=== PATIENT | male | born 1975 | race Caucasian/White ===

== ENCOUNTER 2023-06-03 10:40 | Day surgery (SDC) | payer OTHER, SELFPAY ==
[2023-06-03 11:19] VITALS: BMI 28.6
[2023-06-03 11:28] VITALS: BP 116/85; PULSE 55; RESP 18; TEMP 36.9; O2SAT 100
[2023-06-03] MEDS: Lactated Ringers 1,000 ML 50 ML IVCONT (11:59)
[2023-06-03] MEDS: Sodium Phosphate,Mono-Dibasic 133 ML ENEMA PR ×2 (12:01→12:12)
--- NOTE | 2023-06-03 12:31 | HO.ANESPROP2 ---
HPI - Anesthesia Eval Consult details Narrative: 47 M for colonoscopy [facility] Past Medical History Medical History (Updated 05/30/23 @ 13:52 by Lore Hernandes, RN) Muscle spasm Allergy Functional capacity: independent ambulation Family History Family history of problems with anesthesia: No Surgical History Surgical History (Updated 05/30/23 @ 13:51 by Lore Hernandes RN) Hx of appendectomy Hx of colonoscopy History of Problems with Anesthesia: No Social History Social History Patient Tobacco Use Status: Never used Tobacco Are you DNR?: No Advance Directives: No Advance Directives Information Provided: Yes Meds Allergies Allergy/AdvReac Type Severity Reaction Status Date / Time No Known Allergies Allergy Verified 05/30/23 13:51 Active Medications: Current Medications Lactated Ringer's (Lr) 1,000 mls @ 50 mls/hr IVCONT .Q20H ADALBERTO Last Admin: 06/03/23 11:59 Dose: 50 mls/hr Sodium Biphosphate/Sodium Phosphate (Sodium Phosphate,Glynn-Dibasic 133 Ml Enema) 133 ml TX ONCE PRN PRN Reason: Poor Colonoscopy Prep Results Last Admin: 06/03/23 12:12 Dose: 133 ml Home Medications Medication Instructions Recorded Confirmed Last Taken Type cyclobenzaprine 15 mg 15 mg PO BEDTIME PRN Muscle Spasm 05/30/23 05/30/23 Unknown History capsule,extended release 24 hr fexofenadine 60 mg tablet (Sneha 60 mg PO BID 05/30/23 05/30/23 Unknown History Allergy) fluticasone propionate 50 1 spray intranasal BID 05/30/23 05/30/23 Unknown History mcg/actuation nasal spray,suspension Exam Exam Date and Time: June 03, 2023 1231 Height,Weight and Vital Signs: Height 6 ft 3.5 in Weight 105.233 kg Last Vital Signs Temp 98.5 F 06/03/23 11:28 Pulse 55 06/03/23 11:28 Resp 18 06/03/23 11:28 BP 116/85 06/03/23 11:28 Pulse Ox 100 06/03/23 11:28 O2 Del Method Room Air 06/03/23 11:28 Airway Mallampati Class: IV Loose/Missing/Broken Teeth: Yes Assessment and Plan Assessment Anesthesia Assessment: Anesthesia Plan Discussed and Chart Reviewed Final Anesthetic Review Family History of Problems with Anesthesia: No History of Problems with Anesthesia: No NPO: Yes ASA Class: II Final Preanesthetic Review: Meds/Allgs Chart Reviewed, Consent Obtained/Reviewed and Anes Risks/Benef Reviewed Patient Risk: Intermediate Procedure Risk: Intermediate Anesthetic Plan Anesthetic Plan: MAC: and Agree w/ Assess. and Plan Disposition: Standard PACU
[2023-06-03 13:41] VITALS: BP 100/58; PULSE 54; RESP 16; TEMP 36.6; O2SAT 98
--- NOTE | 2023-06-03 13:44 | P.BOP_ITS ---
Brief Operative Note Date of Service: 06/03/23 Pre-op diagnosis: Screening Post-op diagnosis: other (Diverticulosis) Procedure: Colonoscopy to the cecum and TI Surgeon: Cesar Winston Anesthesia: MAC Was an [employer] used for this Procedure?: No Estimated blood loss (mL): 0 Pathology: none sent Condition: stable Disposition: PACU
[2023-06-03 13:56] VITALS: BP 119/71; PULSE 55; RESP 16; O2SAT 98
[2023-06-03 14:10] VITALS: BP 120/72; PULSE 57; RESP 16; TEMP 36.9; O2SAT 100
--- NOTE | 2023-06-04 00:01 | OP_ITS ---
DATE OF SERVICE: 06/03/2023 SURGEON: Cesar Winston MD INDICATIONS: The patient presents for followup of personal history of a tubular adenoma of the colon and colorectal cancer screening. Full consent has been obtained from him for this, including risks of bleeding and perforation. PREOPERATIVE DIAGNOSIS: POSTOPERATIVE DIAGNOSIS: PROCEDURE PERFORMED: Colonoscopy to cecum and terminal ileum. ESTIMATED BLOOD LOSS: COMPLICATIONS: ANESTHESIA: Monitored anesthesia care. ASSISTANTS: SPECIMENS: PREOPERATIVE DIAGNOSES: Colorectal cancer screening and personal history of tubular adenoma of the colon. POSTOPERATIVE DIAGNOSES: Colorectal cancer screening and personal history of tubular adenoma of the colon, mild diverticulosis, small internal hemorrhoids. DESCRIPTION OF PROCEDURE: The patient was placed in the left lateral decubitus position. The digital rectal exam revealed no abnormalities. The Olympus video pediatric colonoscope was entered into the rectum and advanced easily to the cecum. Once in the cecum, I did identify normal-appearing cecal pouch with appendiceal orifice and a normal-appearing ileocecal valve. The terminal ileum was cannulated and appeared normal. The scope was withdrawn back in the colon. The entire cecum and ileocecal valve appeared normal. The scope was slowly withdrawn assessing all mucosal surfaces carefully. Preparation was excellent. I did not visualize any sign of polyps, colitis, nor angiodysplasia. There was a mild amount of sigmoid diverticulosis. In the rectum, scope was retroflexed visualizing internal hemorrhoids, but no other pathology. The rectal mucosa appeared normal. Scope was straightened and withdrawn from the patient. He tolerated the procedure well and was returned to the recovery area in stable condition. IMPRESSION: 1. Mild sigmoid diverticulosis. 2. Small internal hemorrhoids. PLAN: I would recommend a repeat colonoscopy in 5 years for further screening and surveillance given the previous history of a tubular adenoma. He will otherwise see me on a p.r.n. basis. MD DANITZA Ferro/GARRETT / [id number]
== END 2023-06-03 14:30 | disposition home or self-care (01) ==
PROVIDERS: PCP Physician Assistant Medical; Referring Provider Physician Assistant Medical; Visit Provider Internal Medicine
PROC: 0DJD8ZZ Inspection of Lower Intestinal Tract, Via Natural or Artificial Opening Endoscopic (ICD-10-PCS; CPT 45378; principal; 2023-06-03 12:50)
DX: Z12.11 Encounter for screening for malignant neoplasm of colon (principal); Z86.010 Personal history of colon polyps; K57.30 Diverticulosis of large intestine without perforation or abscess without bleeding; K64.8 Other hemorrhoids
CPT/HCPCS: 45378